=== PATIENT | female | born 1940 | race Caucasian/White ===

== ENCOUNTER 2021-01-03 07:48 | Day surgery (SDC) | payer MEDICARE ==
[2021-01-03] MEDS: Polymyxin B/Trimethoprim 10 ML Bottle EYELF SCH ×3 (07:47→09:24)
[~2021-01-03 07:48] MED LIST: Cefuroxime 10 MG/ML SYRINGE EYELF SCH; Lidocaine 1% PF 2 ML SDV INJECT SCH; Pilocarpine 4% Ophth Soln 15 ML Bot EYELF SCH
--- NOTE | 2021-01-03 07:50 | PCM.PREANE ---
Preanesthetic Assessment - Anesthesia/Transfusion/Family Hx Anesthesia History: Prior Anesthesia Without Reaction Family History of Anesthesia Reaction: No Transfusion History: No Prior Transfusion(s) - Review of Systems General: No Symptoms Cardiovascular: Other (HTN) Gastrointestinal: Other (GERD) Neurological: Other (history ischemic stroke) Other: Reports: Anxiety - Physical Assessment NPO Status Date: 01/02/21 NPO Status Time: 16:00 Weight: 83.461 kg ASA Class: 2 Airway Class: Mallampati = 2 Dentition: Reports: Dentures Thyro-Mental Finger Breadths: 3 Mouth Opening Finger Breadths: 3 ROM/Head Extension: Full Lungs: Clear to Auscultation, Normal Respiratory Effort Cardiovascular: Regular Rate, Regular Rhythm - Allergies Allergies/Adverse Reactions: Allergies Allergy/AdvReac Type Severity Reaction Status Date / Time propoxyphene [From Darvon] Allergy Cannot Verified 01/02/21 08:18 Remember - Blood Blood Available: No Product(s) Available: None - Anesthesia Plan Pre-Op Medication Ordered: None - Acknowledgements Anesthesia Type Planned: MAC Pt an Appropriate Candidate for the Planned Anesthesia: Yes Alternatives and Risks of Anesthesia Discussed w Pt/Guardian: Yes Pt/Guardian Understands and Agrees with Anesthesia Plan: Yes PreAnesthesia Questionnaire - HOME MEDS Home Medications: Home Meds . [Unable to Verify Home Med List] 01/02/21 [History] - CURRENT (IN HOUSE) MEDS Current Meds: Current Medications Brimonidine Tartrate (Brimonidine 0.2% Ophth Soln 5 Ml Bottle) 0 ml EYELF ASDIRECTED ELIANE Stop: 01/03/21 18:00 Cefuroxime Sodium (Cefuroxime 10 Mg/Ml Syringe) 0 mg EYELF ASDIRECTED ELIANE Stop: 01/03/21 18:00 Lidocaine HCl (Lidocaine 1% Pf 2 Ml Sdv) 0 ml INJECT ASDIRECTED ELAINE Stop: 01/03/21 18:00 Phenylephrine HCl (Phenylephrine 2.5% Ophth Soln 2 Ml Bot) 0 ml EYELF ASDIRECTED ELIANE Stop: 01/03/21 18:00 Pilocarpine HCl (Pilocarpine 4% Ophth Soln 15 Ml Bot) 0 ml EYELF ASDIRECTED ELIANE Stop: 01/03/21 18:00 Polymyxin/Trimethoprim Sulfate (Polymyxin B/Trimethoprim 10 Ml Bottle) 0 ml EYELF ASDIRECTED ELIANE Stop: 01/03/21 18:00 Tetracaine HCl (Tetracaine Hcl/Pf 0.5% 4 Ml Bottle) 0 ml EYEBOTH ASDIRECTED ELIANE Stop: 01/03/21 18:00 Tropicamide (Tropicamide 1% Ophth Soln 15 Ml Bottle) 0 ml EYELF ASDIRECTED ELIANE Stop: 01/03/21 18:00
[2021-01-03] MEDS: Brimonidine 0.2% Ophth Soln 5 ML Bottle EYELF SCH ×3 (07:53→09:24)
[2021-01-03] MEDS: Phenylephrine 2.5% Ophth Soln 2 ML Bot EYELF SCH ×5 (07:57→09:02)
[2021-01-03] MEDS: Tropicamide 1% Ophth Soln 15 ML Bottle EYELF SCH ×4 (08:01→08:46)
[2021-01-03] MEDS: Tetracaine HCl/PF 0.5% 4 ML Bottle EYEBOTH SCH ×2 (08:56→09:09)
--- NOTE | 2021-01-03 09:25 | PCM48HPAN ---
Post Anesthesia Note - EVALUATION WITHIN 48HRS OF ANESTHETIC Vital Signs in Normal Range: Yes Patient Participated in Evaluation: Yes Respiratory Function Stable: Yes Airway Patent: Yes Cardiovascular Function Stable: Yes Hydration Status Stable: Yes Pain Control Satisfactory: Yes Nausea and Vomiting Control Satisfactory: Yes Mental Status Recovered: Yes Vital Signs: Last Vital Signs Temp 36.5 C 01/03/21 07:25 Pulse 90 01/03/21 07:25 Resp 18 01/03/21 07:25 BP 169/92 H 01/03/21 07:25 Pulse Ox 98 01/03/21 07:25
== END 2021-01-03 09:51 | disposition home or self-care (01) ==
LOC: JD.SDS 07:48
PROVIDERS: ATTEND Ophthalmology
DX: H25.812 Combined forms of age-related cataract, left eye (principal); H25.89 Other age-related cataract; H16.103 Unspecified superficial keratitis, bilateral; H16.223 Keratoconjunctivitis sicca, not specified as Sjogren's, bilateral; E78.00 Pure hypercholesterolemia, unspecified; I10 Essential (primary) hypertension; Z86.73 Personal history of transient ischemic attack (TIA), and cerebral infarction without residual deficits; Z90.49 Acquired absence of other specified parts of digestive tract; Z98.890 Other specified postprocedural states; Z88.8 Allergy status to other drugs, medicaments and biological substances
CPT/HCPCS: 66984; J0697; V2632

== ENCOUNTER 2023-01-18 10:46 | Inpatient (IN) | payer MEDICARE ==
[2023-01-18] MEDS ORDERED: Ondansetron 4 MG/2 ML SDV IVPUSH ONE (11:09)
[2023-01-18] MEDS ORDERED: HYDROmorphone 0.5 MG/0.5 ML Syringe IVPUSH ONE (11:09)
[2023-01-18] MEDS ORDERED: Iopamidol 612 MG/ML 100 ML Bottle IVPUSH ONE (11:13)
[2023-01-18 11:54] LABS: BASOPHILS PERCENT AUTO 0.2 % (0.0-1.0); EOSINOPHILS PERCENT AUTO 0.1 % (0.0-6.0); HEMATOCRIT 40.2 % (37.0-47.0); IMMATURE GRAN ABSOLUTE AUTO 0.07 K/mm3 (0.00-0.05); IMMATURE GRAN PERCENT AUTO 0.5 % (0.0-0.4); LYMPHOCYTES ABSOLUTE AUTO 0.6 K/mm3 (1.0-4.8); MEAN CORPUSCULAR HEMOGLOBIN 20.8 pg (28.0-32.0); MEAN CORPUSCULAR HGB CONC 29.9 g/dl (32.0-36.0); MEAN CORPUSCULAR VOLUME 69.6 fl (83.0-99.0); MONOCYTES ABSOLUTE AUTO 0.8 K/mm3 (0.0-0.8); MONOCYTES PERCENT AUTO 5.3 % (0.0-8.0); NEUTROPHILS ABSOLUTE AUTO 13.2 K/mm3 (1.8-7.7); NEUTROPHILS PERCENT AUTO 89.9 % (41.0-71.0); PLATELET COUNT,PLT 586 K/mm3 (150-400); RED BLOOD CELL COUNT 5.78 M/mm3 (4.10-5.30); WHITE BLOOD CELL COUNT,WBC 14.67 K/mm3 (3.9-11.3)
[2023-01-18 11:57] LABS: APPEARANCE,URINE SLT CLOUDY (Clear); BILIRUBIN,URINE 1+ (Negative); COLOR,URINE BROWN (Yellow); GLUCOSE,URINE NEGATIVE (Negative); KETONES,URINE 1+ (Negative); LEUKOCYTE ESTERASE,URINE 1+ (Negative); NITRITE,URINE POSITIVE (Negative); OCCULT BLOOD,URINE TRACE-LYSED (Negative); PH,URINE 5.5 (5.0-8.0); PROTEIN,URINE 1+ (Negative)
[2023-01-18] MEDS: Sodium Chloride 0.9% 10 ML Syringe FLUSH PRN ×2 (12:05→12:36)
[2023-01-18 12:12] LABS: BACTERIA,URINE MANY /hpf (FEW); EPITHELIAL CELLS,URINE 0-5 /hpf (0-5); HYALINE CASTS,URINE 0-5 /lpf (0-5); MUCUS,URINE FEW /hpf (FEW)
[2023-01-18 12:15] LABS: A/G RATIO 0.5 (1-2); ALBUMIN 2.6 g/dl (3.4-5.0); ANION GAP 15.9 (5-15); BILIRUBIN TOTAL 1.3 mg/dL (0.2-1.0); BUN/CREATININE RATIO 27.5 (14-18); CALCIUM 8.8 mg/dL (8.5-10.1); CREATININE 0.8 mg/dL (0.55-1.02); EST CRCL DRUG DOSING (CG) 50.9 mL/min; POTASSIUM,K 3.9 mEq/L (3.5-5.1); PROTEIN TOTAL,TP 7.4 g/dl (6.4-8.2)
[2023-01-18 12:17] LABS: C-REACTIVE PROTEIN 16.9 mg/dL (<1.0)
[2023-01-18 12:24] LABS: SLIDE REVIEW ABNORMAL SMEAR
[2023-01-18] MEDS ORDERED: Sodium Chloride 0.9% 1,000 ML IV SCH (12:45)
[2023-01-18] MEDS ORDERED: Naloxone 0.4 MG/ML SDV IVPUSH PRN (16:21)
[2023-01-18] MEDS ORDERED: HYDROmorphone 0.5 MG/0.5 ML Syringe IVPUSH PRN (16:21)
[2023-01-18] MEDS: cefTRIAXone 2 GM in Sodium Chloride 0.9% 100 ML IV SCH (17:01)
[2023-01-18] MEDS: metroNIDAZOLE/Normal Saline 500 MG in Premix Bag 1 BAG IV SCH (18:14)
[2023-01-19] MEDS: metroNIDAZOLE/Normal Saline 500 MG in Premix Bag 1 BAG IV SCH ×3 (01:37→17:34)
[2023-01-19] MEDS: Sodium Chloride 0.9% 1,000 ML IV SCH ×2 (01:37→16:00)
[2023-01-19 05:44] LABS: BASOPHILS PERCENT AUTO 0.1 % (0.0-1.0); EOSINOPHILS PERCENT AUTO 0.1 % (0.0-6.0); HEMOGLOBIN 11.5 gm/dl (12.0-16.0); IMMATURE GRAN ABSOLUTE AUTO 0.09 K/mm3 (0.00-0.05); IMMATURE GRAN PERCENT AUTO 0.6 % (0.0-0.4); LYMPHOCYTES ABSOLUTE AUTO 0.7 K/mm3 (1.0-4.8); LYMPHOCYTES PERCENT AUTO 4.4 % (24.0-44.0); MEAN CORPUSCULAR HEMOGLOBIN 20.9 pg (28.0-32.0); MEAN CORPUSCULAR HGB CONC 29.5 g/dl (32.0-36.0); MEAN CORPUSCULAR VOLUME 70.9 fl (83.0-99.0); MONOCYTES ABSOLUTE AUTO 0.9 K/mm3 (0.0-0.8); MONOCYTES PERCENT AUTO 5.4 % (0.0-8.0); NEUTROPHILS ABSOLUTE AUTO 14.5 K/mm3 (1.8-7.7); NEUTROPHILS PERCENT AUTO 89.4 % (41.0-71.0); PLATELET COUNT,PLT 550 K/mm3 (150-400); WHITE BLOOD CELL COUNT,WBC 16.24 K/mm3 (3.9-11.3)
[2023-01-19 05:57] LABS: ANION GAP 15.6 (5-15); CREATININE 0.8 mg/dL (0.55-1.02); EST CRCL DRUG DOSING (CG) 52.81 mL/min; POTASSIUM,K 3.6 mEq/L (3.5-5.1)
[2023-01-19 06:13] LABS: CALCIUM 8.4 mg/dL (8.5-10.1)
[2023-01-19] MEDS: Diltiazem 120 MG Cap.CD PO SCH (08:42)
[2023-01-19] MEDS: Aspirin 81 MG Tab.EC PO SCH (08:44)
[2023-01-19] MEDS: Pantoprazole 40 MG Vial IV SCH (08:45)
[2023-01-19] MEDS ORDERED: Pantoprazole 40 MG in Sodium Chloride 0.9% 100 ML IV SCH (09:00)
[2023-01-19] MEDS: Digoxin 125 MCG Tab PO SCH (12:55)
[2023-01-19] MEDS: cefTRIAXone 2 GM in Sodium Chloride 0.9% 100 ML IV SCH (16:00)
[2023-01-20] MEDS: metroNIDAZOLE/Normal Saline 500 MG in Premix Bag 1 BAG IV SCH ×2 (01:19→08:00)
[2023-01-20] MEDS: Sodium Chloride 0.9% 1,000 ML IV SCH ×2 (05:40→16:57)
[2023-01-20] MEDS: Pantoprazole 40 MG Vial IV SCH (08:00)
[2023-01-20] MEDS: Diltiazem 120 MG Cap.CD PO SCH (08:00)
[2023-01-20] MEDS: Aspirin 81 MG Tab.EC PO SCH (08:00)
[2023-01-20] MEDS: Meropenem 1 GM in Sodium Chloride 0.9% 100 ML IV SCH ×2 (08:57→16:32)
[2023-01-20 10:48] LABS: HEMATOCRIT 37.3 % (37.0-47.0); HEMOGLOBIN 10.8 gm/dl (12.0-16.0); MEAN CORPUSCULAR HEMOGLOBIN 21.1 pg (28.0-32.0); MEAN CORPUSCULAR VOLUME 72.7 fl (83.0-99.0); MEAN PLATELET VOLUME 7.8 fl (9.4-12.3); PLATELET COUNT,PLT 479 K/mm3 (150-400); RED BLOOD CELL COUNT 5.13 M/mm3 (4.10-5.30); WHITE BLOOD CELL COUNT,WBC 9.61 K/mm3 (3.9-11.3)
[2023-01-20 11:10] LABS: BUN/CREATININE RATIO 21.3 (14-18); CALCIUM 8.3 mg/dL (8.5-10.1); CREATININE 0.8 mg/dL (0.55-1.02); EST CRCL DRUG DOSING (CG) 52.81 mL/min
[2023-01-20 11:50] LABS: ANION GAP 10.9 (5-15)
[2023-01-20 11:51] LABS: POTASSIUM,K 2.9 mEq/L (3.5-5.1)
[2023-01-20] MEDS: Digoxin 125 MCG Tab PO SCH (11:51)
[2023-01-20 17:12] LABS: APPEARANCE,URINE SLT CLOUDY (Clear); BILIRUBIN,URINE 2+ (Negative); COLOR,URINE AMBER (Yellow); GLUCOSE,URINE NEGATIVE (Negative); KETONES,URINE TRACE (Negative); LEUKOCYTE ESTERASE,URINE TRACE (Negative); NITRITE,URINE NEGATIVE (Negative); OCCULT BLOOD,URINE 1+ (Negative); PH,URINE 5.5 (5.0-8.0); PROTEIN,URINE 1+ (Negative)
[2023-01-20 17:49] LABS: BACTERIA,URINE MANY /hpf (FEW); MUCUS,URINE FEW /hpf (FEW); SQUAMOUS EPITHELIAL CELLS,UR 30-40 /hpf (0-5); WBC,URINE >100 /hpf (0-5)
[2023-01-20] MEDS ORDERED: Acetaminophen 325 MG Tab PO PRN (21:12)
[2023-01-21] MEDS: Meropenem 1 GM in Sodium Chloride 0.9% 100 ML IV SCH ×3 (01:02→17:13)
[2023-01-21 06:11] LABS: HEMATOCRIT 36.3 % (37.0-47.0); HEMOGLOBIN 10.3 gm/dl (12.0-16.0); MEAN CORPUSCULAR HEMOGLOBIN 20.4 pg (28.0-32.0); MEAN CORPUSCULAR HGB CONC 28.4 g/dl (32.0-36.0); MEAN CORPUSCULAR VOLUME 71.7 fl (83.0-99.0); PLATELET COUNT,PLT 458 K/mm3 (150-400); RED BLOOD CELL COUNT 5.06 M/mm3 (4.10-5.30)
[2023-01-21 06:27] LABS: ANION GAP 9.9 (5-15); BUN/CREATININE RATIO 23.3 (14-18); CALCIUM 7.8 mg/dL (8.5-10.1); CREATININE 0.6 mg/dL (0.55-1.02); EST CRCL DRUG DOSING (CG) 70.41 mL/min; POTASSIUM,K 2.9 mEq/L (3.5-5.1)
[2023-01-21] MEDS: Pantoprazole 40 MG Vial IV SCH (09:11)
[2023-01-21] MEDS: Diltiazem 120 MG Cap.CD PO SCH (09:16)
[2023-01-21] MEDS: Potassium Chloride 10 MEQ in Premix Bag 1 BAG IV SCH ×4 (09:16→15:03)
[2023-01-21] MEDS: Aspirin 81 MG Tab.EC PO SCH (09:17)
[2023-01-21] MEDS: Digoxin 125 MCG Tab PO SCH (11:42)
[2023-01-22] MEDS: Meropenem 1 GM in Sodium Chloride 0.9% 100 ML IV SCH ×2 (00:30→08:19)
[2023-01-22] MEDS: Aspirin 81 MG Tab.EC PO SCH (08:19)
[2023-01-22] MEDS: Pantoprazole 40 MG Vial IV SCH (08:19)
[2023-01-22] MEDS ORDERED: Potassium Chloride 20 MEQ Tab.ER PO ONE (09:00)
[2023-01-22] MEDS ORDERED: Diltiazem 240 MG Cap.ER PO SCH (09:00)
[2023-01-22] MEDS: Digoxin 125 MCG Tab PO SCH (13:06)
== END 2023-01-22 15:31 | DRG 372 ==
LOC: JD.ED 10:46 → JD.MS 14:28
PROVIDERS: ADMIT Hospitalist; ATTEND Internal Medicine
DX: A04.72 Enterocolitis due to Clostridium difficile, not specified as recurrent (principal); I31.39 Other pericardial effusion (noninflammatory); N30.01 Acute cystitis with hematuria; Z66 Do not resuscitate; I50.9 Heart failure, unspecified; K59.00 Constipation, unspecified; I48.0 Paroxysmal atrial fibrillation; I95.9 Hypotension, unspecified; R50.9 Fever, unspecified; E87.6 Hypokalemia; F32.A Depression, unspecified; Z86.73 Personal history of transient ischemic attack (TIA), and cerebral infarction without residual deficits; Z88.0 Allergy status to penicillin; Z88.8 Allergy status to other drugs, medicaments and biological substances; I48.91 Unspecified atrial fibrillation; I69.351 Hemiplegia and hemiparesis following cerebral infarction affecting right dominant side; Z79.02 Long term (current) use of antithrombotics/antiplatelets; Z79.82 Long term (current) use of aspirin; Z79.899 Other long term (current) drug therapy
CPT/HCPCS: 36415; 74177; 80053; 81001; 83605; 85025; 86140; 96361; 96374; 96375; 99285; J1170; J2405; J3490 ×2; J7030; Q9967; 80048; 82947; 84145; 85027; 87045; 87046; 87086; 87324; 87493; 87498; 87641; 87899; 93306; 94761; 97162-GP; 99222; 99232; 99284; A9270-GY; C9113; J0696; J2185; J3480; U0002